=== PATIENT | male | born 1950 | race Caucasian/White ===

== ENCOUNTER 2021-04-12 10:55 | Day surgery (SDC) | payer MEDICARE ==
[~2021-04-12] VITALS: Ht 182.9 cm; Wt 95.6 kg
[~2021-04-12 10:55] MED LIST: ACETAMINOPHEN 325 MG TABLET PO PRN; EPHEDRINE 50 MG/ML, 1ML IVPush PRN; FENTANYL PF 100 MCG/2ML IV PRN; HYDROmorphone 1 MG/ML, 1ML INJ IVPush PRN; LABETALOL 5MG/ML, 20ML IV PRN; LIDOCAINE-MPF 2% ,5ML ONE; ONDANSETRON 2MG/ML, 2ML IVPush PRN; OXYcodone 5 MG/5 ML ORAL.SOL UDC PO PRN; PLEASE ENTER ALLERGIES MC SCH; PLEASE ENTER HEIGHT AND WEIGHT MC SCH; PROMETHAZINE 25 MG/ML, 1ML IVPush PRN; hydrALAzine 20 MG/ML, 1ML IV PRN
[2021-04-12] MEDS ORDERED: SODIUM CHLORIDE 0.9% 1,000 ML IV SCH (11:30)
[2021-04-12] MEDS ORDERED: OMEP-110 PO (11:32)
[2021-04-12] MEDS ORDERED: GLUC15006 PO (11:32)
[2021-04-12] MEDS ORDERED: SILD20TA PO (11:32)
[2021-04-12] MEDS ORDERED: VIT1TABL34 PO (11:32)
[2021-04-12] MEDS ORDERED: OMEG1CAP34 PO (11:32)
[2021-04-12] MEDS ORDERED: CALC200T3 PO (11:32)
[2021-04-12] MEDS ORDERED: [UNRECOGNIZED DRUG - CODE] PO (11:32)
[2021-04-12] MEDS ORDERED: CHON400C PO (11:32)
[2021-04-12] MEDS ORDERED: TRIA5PAS10 PO (11:32)
[2021-04-12] MEDS ORDERED: ATOR40TA78 PO (11:32)
[2021-04-12] MEDS ORDERED: FLUT9.9S16 NAS (11:32)
[2021-04-12] MEDS ORDERED: CHOL10003 PO (11:32)
[2021-04-12] MEDS ORDERED: METO50TA82 PO (11:32)
[2021-04-12] MEDS ORDERED: ASPI81TA45 PO (11:32)
[2021-04-12] MEDS ORDERED: LISI5TAB7 PO (11:32)
[2021-04-12] MEDS ORDERED: TAMS-11 PO (11:32)
[2021-04-12] MEDS ORDERED: PRAS10TA4 PO (11:32)
[2021-04-12 11:36] VITALS: BP 154/95
[2021-04-12 12:10] LABS: BASOPHILS % (AUTO) 1 % (0-1); EOSINOPHILS % (AUTO) 1 % (1-7); LYMPHOCYTES % (AUTO) 19 % (22-44); MEAN CORPUSCULAR HEMOGLOBIN 29.7 pg (27.5-34.5); MEAN CORPUSCULAR HGB CONC 33.6 g/dL (33.2-36.2); MEAN PLATELET VOLUME 6.9 fL (7.4-10.4); MONOCYTES % (AUTO) 8 % (2-9); NEUTROPHILS % (AUTO) 71 % (42-75); PLATELET COUNT 193 x10^3/uL (130-400); RED BLOOD COUNT 5.22 x10^6/uL (4.38-5.82); RED CELL DISTRIBUTION WIDTH 13.6 % (9.4-14.8)
[2021-04-12 12:12] LABS: ALANINE AMINOTRANSFERASE 31 U/L (12-78); ALBUMIN 3.7 g/dL (3.4-5.0); ANION GAP 5 mmol/L (5-15); CALCIUM 9.1 mg/dL (8.5-10.1); CHLORIDE 112 mmol/L (98-107); CREATININE 0.78 mg/dL (0.7-1.3)
[2021-04-12 12:14] LABS: ALKALINE PHOSPHATASE 44 U/L (45-117); BILIRUBIN,TOTAL 0.8 mg/dL (0.2-1.0); INTERNATIONAL NORMALIZED RATIO 1.01 (0.93-1.1); PROTHROMBIN TIME 10.8 Seconds (9.6-11.5); TOTAL PROTEIN 7.2 g/dL (6.4-8.2)
[2021-04-12] MEDS ORDERED: LIDOCAINE 2%, 20ML ONE (12:23)
[2021-04-12] MEDS ORDERED: FENTANYL PF 100 MCG/2ML ONE (12:47)
[2021-04-12] MEDS ORDERED: ONDANSETRON 2MG/ML, 2ML ONE (13:12)
[2021-04-12] MEDS ORDERED: ROCURONIUM 10MG/ML,5ML ONE ×2 (13:12→13:52)
[2021-04-12] MEDS ORDERED: SUCCINYLCHOLINE 20 MG/ML, 10ML ONE (13:12)
[2021-04-12] MEDS ORDERED: DEXAMETHASONE 4 MG/ML, 1ML ONE (13:12)
[2021-04-12] MEDS ORDERED: SUGAMMADEX 200 MG/2 ML IVPush ONE (13:12)
[2021-04-12] MEDS ORDERED: PROPOFOL 10 MG/ML, 20ML ONE (13:12)
[2021-04-12] MEDS ORDERED: PHENYLEPHRINE 10 MG/ML ONE (13:20)
[2021-04-12] MEDS ORDERED: ISOPROTERENOL 0.2MG/ML, 5ML ONE (13:43)
[2021-04-12] MEDS ORDERED: ACETAMINOPHEN 325 MG TABLET PO PRN (15:00)
[2021-04-12] MEDS ORDERED: ONDANSETRON 2MG/ML, 2ML IVPush PRN (15:00)
[2021-04-12] MEDS ORDERED: ACETAMINOPHEN 325 MG TABLET ONE (16:27)
== END 2021-04-12 19:53 | disposition home or self-care (01) ==
LOC: CACL 10:55 → 5SO 16:56 → CACL 19:53
PROVIDERS: ATTEND Internal Medicine Clinical Cardiac Electrophysiology
DX: I48.3 Typical atrial flutter (principal); I25.10 Atherosclerotic heart disease of native coronary artery without angina pectoris; I25.2 Old myocardial infarction; I10 Essential (primary) hypertension; E78.5 Hyperlipidemia, unspecified; Z79.01 Long term (current) use of anticoagulants; Z79.82 Long term (current) use of aspirin; Z79.899 Other long term (current) drug therapy
CPT/HCPCS: 36415; 71046; 80053; 85025; 85610; 85730; 87635; 93005; 93613; 93621; 93623; 93653; C1730; C1732; C1766; C1894; J0330; J1100; J2370; J2405; J2704; J3010; G0378